=== PATIENT | male | born 1970 | race Asian ===

== ENCOUNTER 2022-10-06 08:37 | Outpatient (REF) | payer BC, SELFPAY ==
[2022-10-06 09:55] LABS: Estimated Average Glucose 114 mg/dL; Hemoglobin A1c % 5.6 %
[2022-10-06 10:48] LABS: Alanine Aminotransferase 20 U/L (0-40); Albumin Level 4.4 g/dL (3.5-5.0); Alkaline Phosphatase 65 U/L (39-117); Anion Gap 11 (12-20); Aspartate Amino Transferase 15 U/L (5-37); Bilirubin Total 1.1 mg/dL (0.0-1.0); Blood Urea Nitrogen 13 mg/dL (9-16); Calcium 9.3 mg/dL (8.4-10.2); Carbon Dioxide 24 mmol/L (22-29); Chloride 106 mmol/L (96-108); Estimated Glomerular Filt Rate > 60; Glucose Random 106 mg/dL (60-115); Potassium 3.8 mmol/L (3.3-5.1); Sodium 137 mmol/L (135-145); Total Protein 7.4 g/dL (6.5-8.0)
== END 2022-10-06 08:38 | disposition home or self-care (01) ==
LOC: HO.LAB 08:37
PROVIDERS: PCP Internal Medicine; Visit Provider Internal Medicine
DX: R73.02 Impaired glucose tolerance (oral) (principal)
CPT/HCPCS: 36415; 80053; 83036

== ENCOUNTER 2022-10-13 10:42 | Outpatient (AMB) | payer BC, SELFPAY ==
--- NOTE | 2022-10-13 10:43 | A.OFFPC_ITS ---
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 Accompanied by: Self / Same As Patient Allergies NSAIDS (Non-Steroidal Anti-Inflamma Allergy (Intermediate, Verified 10/13/22 10:43) congested, Tobacco use date assessed: 04/14/22 Dental Screening Dental Screen Date: 10/13/22 Did you have a dental visit in the last 12 months?: Yes Did you have a dental problem in the last 6 months where you did not have access to dental care?: No Was dental information given to patient?: Patient has dentist HPI Impaired glucose tolerance HPI Details 51-year-old overweight male with hypertension impaired glucose tolerance hypercholesterolemia last seen in March 2022. Repeat blood test was requested. [facility] Medical History Hypertension Overweight (BMI 25.0-29.9) Vitamin D deficiency Surgical History History of cholecystectomy Family History Father Hypertension Stroke Acute CVA (cerebrovascular accident) Mother Hypertension Acute CVA (cerebrovascular accident) Paternal Grandfather Acute CVA (cerebrovascular accident) Maternal Aunt Nasopharynx cancer Son In good health Daughter In good health Maternal Aunt Myocardial infarct Social History Housing: House Alcohol intake: current Patient Tobacco Use Status: Former Tobacco user Tobacco use type: Cigarette Years Smoked: stopped 2018 vape 03/2021, e-Cigarette/Vaping Use: Currently Using Second Hand Smoke Exposure: Yes Current occupational status: employed Cognitive needs: No Hearing needs: No Vision needs: Yes Questionnaire Thrive Questionnaire Date Thrive assessed: 04/14/22 CROW-7 AMB Questionnaire CROW-7 Date CROW - 7 assessed: 04/14/22 Source: Developed by Drs. Kehinde Arnold, Nayeli Mancia, Krzysztof Malik and colleagues, with an educational artie from [employer]. Physical exam (Primary Care) Vital Signs: Last Vital Signs Pulse 69 10/13/22 10:44 BP 122/70 10/13/22 10:44 Pulse Ox 99 10/13/22 10:44 BMI result Body Mass Index 26.6 Tobacco/Smoking Status: Tobacco use Status Tobacco use date assessed 04/14/22 10/13/22 10:47 Patient Tobacco Use Status Former Tobacco user 10/13/22 10:47 Tobacco use type Cigarette 10/13/22 10:47 e-Cigarette/Vaping Use Currently Using 10/13/22 10:47 Thrive Assessment: Date of Thrive Assessment Date Thrive assessed 04/14/22 10/13/22 10:47 Const General: alert; No acute distress Eyes Conjunctivae: conjunctivae normal Resp Auscultation: clear to auscultation bilaterally Cardio Rate: regular rate Rhythm: regular rhythm GI Inspection: Yes normal to inspection Extrem General: Yes normal to inspection and No edema Assessment and Plan Assessment & Plan (1) Hypercholesterolemia: Code(s): E78.00 - Pure hypercholesterolemia, unspecified Plan: Avoid fried foods, chicken skin, eggs, butter margarine, pastries and meat. Be it pork or beef they have a lot of cholesterol LDL goal of less than 130 and triglyceride of less than 150 (2) Impaired glucose tolerance: Code(s): R73.02 - Impaired glucose tolerance (oral) Plan: Decrease the amount of carbohydrate intake, pasta, bread, rice and potatoes are all sugar and that is aside from all the sweet stuff, remember that fruits are good but they are Sweet also. (3) Overweight (BMI 25.0-29.9): Code(s): E66.3 - Overweight Plan: Diet and exercise (4) Hypertension: Code(s): I10 - Essential (primary) hypertension Qualifiers: Hypertension type: essential hypertension Qualified Code(s): I10 - Essential (primary) hypertension Plan: Continue with blood pressure medication. Decrease salt intake and exercise patient is on amlodipine 10 mg once a day hydrochlorothiazide 12.5 mg once a day Coding Level of Care Code Est Pt Level 4 (03773) Diagnoses Hypercholesterolemia E78.00 Impaired glucose tolerance R73.02 Overweight (BMI 25.0-29.9) E66.3 Hypertension I10 Hypertension type: essential hypertension
[2022-10-13 10:44] VITALS: BP 122/70; PULSE 69; O2SAT 99; BMI 26.6
== END 2022-10-13 11:11 | disposition home or self-care (01) ==
PROVIDERS: PCP Internal Medicine; Visit Provider Internal Medicine
DX: E78.00 Pure hypercholesterolemia, unspecified (principal); R73.02 Impaired glucose tolerance (oral); E66.3 Overweight; I10 Essential (primary) hypertension
CPT/HCPCS: 99214

== ENCOUNTER 2023-04-20 10:49 | Outpatient (AMB) | payer BC, SELFPAY ==
[2023-04-20 10:54] VITALS: BP 136/82; PULSE 77; O2SAT 99; BMI 27.8
--- NOTE | 2023-04-20 10:54 | A.OFFPC_ITS ---
Vital Signs 04/20/23 10:54 Height 5 ft 5 in Weight 167 lb 0.8 oz BMI 27.8 BP 136/82 Blood Pressure Location Lt brachial Position Sitting Pulse 77 Pulse Source Pulse Oximeter Pulse Oximetry (%) 99 Oxygen Delivery Method Room Air Intake Visit Reasons: Annual Exam Intake Note: Patient is here today for a physical. 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 Allergies NSAIDS (Non-Steroidal Anti-Inflamma Allergy (Intermediate, Verified 04/20/23 10:55) congested, Medication List - Last Reconciled 04/20/23 by Pati Eli MD amlodipine 10 mg PO DAILY 90 days ascorbate calcium (vitamin C) 500 mg PO DAILY blood pressure monitor (Blood Pressure Kit) As directed cholecalciferol (vitamin D3) 25 mcg PO DAILY vitamin E (dl, acetate) 400 units PO DAILY Tobacco use date assessed: 04/20/23 Dental Screening Dental Screen Date: 04/20/23 Did you have a dental visit in the last 12 months?: Yes Did you have a dental problem in the last 6 months where you did not have access to dental care?: No Was dental information given to patient?: Patient has dentist HPI Annual Exam HPI Details 52-year-old overweight male with hyperch olesterolemia impaired glucose tolerance and hypertension last seen in September 2022. Patient is here for physical exam. Lab work done 04/19/2023 reveals normal blood count platelet count white blood cells folic acid vitamin B12 noted elevated blood sugar to 117 sodium potassium within normal limits kidney function normal calcium liver function all normal cholesterol within normal limits prostate number is normal thyroid is normal hemoglobin A1c 6.1. [facility] Medical History Hypertension Overweight (BMI 25.0-29.9) Vitamin D deficiency Surgical History History of cholecystectomy Family History Father Hypertension Stroke Acute CVA (cerebrovascular accident) Mother Hypertension Acute CVA (cerebrovascular accident) Paternal Grandfather Acute CVA (cerebrovascular accident) Maternal Aunt Nasopharynx cancer Son In good health Daughter In good health Maternal Aunt Myocardial infarct Social History (Updated 04/20/23 @ 11:38 by Pati Eli MD) Housing: House Alcohol intake: current Comment: 4 x a month 3-4 shots Patient Tobacco Use Status: Former Tobacco user Tobacco use type: Cigarette Years Smoked: stopped 2018 vape 03/2021, stopped 2022 e-Cigarette/Vaping Use: Currently Using Second Hand Smoke Exposure: Yes Current occupational status: employed Cognitive needs: No Hearing needs: No Vision needs: Yes Questionnaire PHQ-9 Over the last 2 weeks, how often have you been bothered by any of the following problems? 1. Little interest or pleasure in doing things: not at all 2. Feeling down, depressed, or hopeless: not at all 3. Trouble falling or staying asleep, or sleeping too much: not at all 4. Feeling tired or having little energy: not at all 5. Poor appetite or overeating: not at all 6. Feeling bad about yourself - or that you are a failure or have let yourself or your family down: not at all 7. Trouble concentrating on things, such as reading the newspaper or watching television: not at all 8. Moving or speaking so slowly that other people could have noticed. Or the opposite - being so fidgety or restless that you have been moving around a lot more than usual: not at all 9. Thoughts that you would be better off or of hurting yourself in some way: not at all Total score: 0 Depression Screening Interpretation: Negative Depression Screening Done: Yes Source: Developed by Drs. Kehinde Anrold, Nayeli Mancia, Krzysztof Malik and colleagues, with an educational artie from [employer]. Thrive Questionnaire Date Thrive assessed: 04/20/23 I am a: Patient What is your living situation today?: I have a steady place to live Within the past 12 months, did the food you bought not last and you didn't have the money to get more?: Never true Within the past 12 months, did you worry whether your food would run out before you got money to buy more?: Never true Do you have trouble paying for medicines?: No Do you have trouble getting transportation to medical appointments?: No Do you have trouble paying your heating and electricity bill?: No Do you have trouble taking care of your child, family member or friend?: No Do you have trouble with day-to-day activities such as bathing, preparing meals, shopping, managing finances, etc.?: No Are you currently unemployed and looking for a job?: No Are you interested in more education?: No Please select the resources that you would like help with: None THRIVE Score: 0 AUDIT C Alcohol Use Questionnaire (AUDIT-C) 1. How often do you have a drink containing alcohol?: 2-3 times a week 2. How many drinks containing alcohol do you have on a typical day when you are drinking?: 1 or 2 3. How often do you have six or more drinks on one occasion?: Never Total Score: 3 CROW-7 AMB Questionnaire CROW-7 Date CROW - 7 assessed: 04/20/23 Feeling nervous, anxious, or on edge: 0 = Not at all Not being able to stop or control worryin = Not at all Worrying too much about different things: 0 = Not at all Trouble relaxin = Not at all Being so restless that it is hard to sit still: 0 = Not at all Becoming easily annoyed or irritable: 0 = Not at all Feeling afraid as if something awful might happen: 0 = Not at all Total CROW-7 score (0-4 normal; 5-9 mild; 10-14 moderate; 15-21 severe): 0 Source: Developed by Drs. Kehinde Arnold, Nayeli Mancia, Krzysztof Malik and colleagues, with an educational artie from [employer]. Review of Systems Const Denies poor appetite and Denies weakness Eyes Denies no additional complaints ENT Reports Normal hearing present, Denies dizziness, Denies nasal congestion, Denies tinnitus and Denies sore throat Card Denies chest pain, Denies syncope, Denies rapid heart rate and Denies dyspnea Resp Denies cough and Denies dyspnea GI Denies change in stool character, Reports constipation, Denies diarrhea, Denies nausea and Denies vomiting Denies dysuria and Denies urinary frequency Neuro Reports Normal hearing present, Denies confusion, Denies dizziness, Denies syncope and Denies weakness Psych Denies confusion Physical exam (Primary Care) Vital Signs: Last Vital Signs Pulse 77 04/20/23 10:54 BP 136/82 04/20/23 10:54 Pulse Ox 99 04/20/23 10:54 Oxygen Delivery Method Room Air 04/20/23 10:54 BMI result Body Mass Index 27.8 Tobacco/Smoking Status: Tobacco use Status Tobacco use date assessed 04/20/23 04/20/23 10:55 Patient Tobacco Use Status Former Tobacco user 04/20/23 10:55 Tobacco use type Cigarette 04/20/23 10:55 e-Cigarette/Vaping Use Currently Using 04/20/23 10:55 PHQ-9: PHQ-9 Score PHQ-9: Total score 0 04/20/23 11:02 Depression Screening Interpretation: Negative Thrive Assessment: Date of Thrive Assessment Date Thrive assessed 04/20/23 04/20/23 10:55 Const General: No confusion Orientation/consciousness: No confusion HENMT Head: Yes normocephalic Ears: external ears normal and TM's normal bilaterally Face and sinus: Yes normal facial exam Mouth: moist mucous membranes Throat: Yes tonsils normal Eyes Conjunctivae: conjunctivae normal Pupils: Equal, round and reactive pupils present and Pupil accommodation reflex normal Direct Ophthalmoscopy: normal light reflex Neck Neck: No lymphadenopathy Thyroid: Thyroid normal Chest Chest palpation & inspection: normal inspection of the chest Resp Effort & Inspection: normal respiratory effort and no audible wheezes Auscultation: clear to auscultation bilaterally, no crackles, no wheezes and lung sounds not diminished Cardio Rate: regular rate Rhythm: regular rhythm Peripheral pulses: radial pulses present and dorsalis pedis present GI Palpation (GI): no masses Auscultation: normal bowel sounds and normoactive bowel sounds Rectal Exam - Male: Yes deferred Skin General skin exam: no rashes or lesions noted Rashes: no rashes Neuro General: No confusion Cranial nerves: Yes Equal, round and reactive pupils present and Yes Normal hearing present Cognition (Neuro): normal cognition Gait exam (Neuro): Normal gait present Motor exam (neuro): 5/5 motor strength present throughout Deep tendon reflexes (DTR's): Right brachioradialis reflex intensity grade: 2+, Left brachioradialis reflex intensity grade: 2+, Right patellar reflex intensity grade: 2+ and Left patellar reflex intensity grade: 2+ Extrem General: No edema Assessment and Plan Assessment & Plan (1) Annual physical exam: Code(s): Z00.00 - Encounter for general adult medical examination without abnormal findings (2) Impaired glucose tolerance: Code(s): R73.02 - Impaired glucose tolerance (oral) Plan: Decrease the amount of carbohydrate intake, pasta, bread, rice and potatoes are all sugar and that is aside from all the sweet stuff, remember that fruits are good but they are Sweet also. Hemoglobin A1c March 2023 6.1 advised psyllium like citrucel /metamucil (3) Overweight (BMI 25.0-29.9): Code(s): E66.3 - Overweight Plan: Diet and exercise (4) Hypertension: Code(s): I10 - Essential (primary) hypertension Qualifiers: Hypertension type: essential hypertension Qualified Code(s): I10 - Ess ential (primary) hypertension Plan: Continue with blood pressure medication. Decrease salt intake and exercise on hydrochlorothiazide and amlodipine BP control (5) Hypercholesterolemia: Code(s): E78.00 - Pure hypercholesterolemia, unspecified Plan: Avoid fried foods, chicken skin, eggs, butter margarine, pastries and meat. Be it pork or beef they have a lot of cholesterol LDL goal of less than 130 and triglyceride of less than 150 diet controlled Medications: Refilled amlodipine 10 mg PO DAILY 90 days 90 tabs 3RF I10 - Essential (primary) hypertension Coding Level of Care Code Est Pt Prev Care 40-64y(82101) Diagnoses Annual physical exam Z00.00 Impaired glucose tolerance R73.02 Overweight (BMI 25.0-29.9) E66.3 Essential hypertension I10 Hypertension type: essential hypertension Hypercholesterolemia E78.00
== END 2023-04-20 11:53 | disposition home or self-care (01) ==
PROVIDERS: Visit Provider Internal Medicine
DX: Z00.00 Encounter for general adult medical examination without abnormal findings (principal); R73.02 Impaired glucose tolerance (oral); E66.3 Overweight; I10 Essential (primary) hypertension; E78.00 Pure hypercholesterolemia, unspecified
CPT/HCPCS: 99396

== ENCOUNTER → 2024-05-02 12:08 | Outpatient (AMB) | payer BC, SELFPAY | END | disposition home or self-care (01) | PROVIDERS: PCP Internal Medicine; Visit Provider Internal Medicine ==

== ENCOUNTER → 2024-05-02 12:08 | Outpatient (BNVA) | payer BC, SELFPAY | PROVIDERS: PCP Internal Medicine; Visit Provider Internal Medicine ==

== ENCOUNTER 2024-11-07 11:32 | Outpatient (AMB) | payer OTHER, SELFPAY ==
--- NOTE | 2024-11-07 11:35 | A.OFFPC_ITS ---
Vital Signs 11/07/24 11:36 Height 5 ft 5 in Weight 172 lb 2 oz BMI 28.6 BP 110/70 Blood Pressure Location Lt brachial Position Sitting Pulse 86 Pulse Source Pulse Oximeter Temp 97.1 F Temp Source Temporal Artery Scan Pulse Oximetry (%) 98 Oxygen Delivery Method Room Air Intake Visit Reasons: IGT Intake Note: Patient is here to follow up on IGT. 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 Accompanied by: Self / Same As Patient Allergies NSAIDS (Non-Steroidal Anti-Inflamma Allergy (Intermediate, Verified 11/07/24 11:35) congested, Tobacco use date assessed: 11/07/24 Dental Screening Dental Screen Date: 05/02/24 [facility] Medical History Hypertension Overweight (BMI 25.0-29.9) Vitamin D deficiency Surgical History History of cholecystectomy Family History Father Hypertension Stroke Acute CVA (cerebrovascular accident) Mother Hypertension Acute CVA (cerebrovascular accident) Paternal Grandfather Acute CVA (cerebrovascular accident) Maternal Aunt Nasopharynx cancer Son In good health Daughter In good health Maternal Aunt Myocardial infarct Social History (Updated 11/07/24 @ 11:42 by JOVANNI Calderon) Housing: House Alcohol intake: current Comment: 1-2 x a month 2 shots Patient Tobacco Use Status: Former Tobacco user Tobacco use type: Cigarette Years Smoked: stopped 2018 vape 03/2021, stopped 2022 e-Cigarette/Vaping Use: Former Use Second Hand Smoke Exposure: Yes service: No Current occupational status: employed Cognitive needs: No Hearing needs: No Vision needs: Yes Questionnaire Thrive Questionnaire Date Thrive assessed: 04/30/24 I am a: Patient What is your living situation today?: I have a steady place to live Within the past 12 months, did the food you bought not last and you didn't have the money to get more?: Never true Within the past 12 months, did you worry whether your food would run out before you got money to buy more?: Never true Do you have trouble paying for medicines?: No Do you have trouble getting transportation to medical appointments?: No Do you have trouble paying your heating and electricity bill?: No Do you have trouble taking care of your child, family member or friend?: No Do you have trouble with day-to-day activities such as bathing, preparing meals, shopping, managing finances, etc.?: No Are you currently unemployed and looking for a job?: No Are you interested in more education?: Yes Please select the resources that you would like help with: Education Currently or been in a relationship where the following occur: No concerns reported THRIVE Score: 0 CROW-7 AMB Questionnaire CROW-7 Date CROW - 7 assessed: 05/02/24 Source: Developed by Drs. Kehinde Arnold, Nayeli Mancia, Krzysztof Malik and colleagues, with an educational artie from [employer]. Physical exam (Primary Care) Vital Signs: Last Vital Signs Temp 97.1 F 11/07/24 11:36 Pulse 86 11/07/24 11:36 BP 110/70 11/07/24 11:36 Pulse Ox 98 11/07/24 11:36 Oxygen Delivery Method Room Air 11/07/24 11:36 BMI result Body Mass Index 28.6 Tobacco/Smoking Status: Tobacco use Status Tobacco use date assessed 11/07/24 11/07/24 11:43 Patient Tobacco Use Status Former Tobacco user 11/07/24 11:43 Tobacco use type Cigarette 11/07/24 11:43 e-Cigarette/Vaping Use Former Use 11/07/24 11:43 Thrive Assessment: Date of Thrive Assessment Date Thrive assessed 04/30/24 11/07/24 11:43 Currently or been in a relationship where the following occur: No concerns reported Const General: alert; No acute distress Eyes Conjunctivae: conjunctivae normal Resp Auscultation: clear to auscultation bilaterally Cardio Rate: regular rate Rhythm: regular rhythm GI Inspection: Yes normal to inspection Extrem General: Yes normal to inspection and No edema Results AMB Hemoglobin A1c AMB Hemoglobin A1c 6.1 % Last Edit by Mery Mcmillan CMA on 11/07/24 12 :41 Results Reviewed Results Reviewed: Laboratory Last Values Hgb A1c (Clinic) 6.1 % (4.0-6.0) H 11/07/24 12:24 Coding Level of Care Code Est Pt Level 4 (54772) Diagnoses Essential hypertension I10 Hypertension type: essential hypertension Hypercholesterolemia E78.00 Impaired glucose tolerance R73.02 Overweight (BMI 25.0-29.9) E66.3 Thumb tendonitis M77.8 Assessment & Plan Assessment & Plan (1) Hypertension: Code(s): I10 - Essential (primary) hypertension Category: Medical Qualifiers: Hypertension type: essential hypertension Qualified Code(s): I10 - Essential (primary) hypertension Plan: continue with BP med , low salt diet patient on amlodipine 10 mg once a day. Lower extremity swelling is mild (2) Hypercholesterolemia: Code(s): E78.00 - Pure hypercholesterolemia, unspecified Category: Medical Plan: awaiting blood work . low cholesterol diet. Avoid fried foods, chicken skin, eggs, butter margarine, pastries and meat. Be it pork or beef they have a lot of cholesterol LDL goal of less than 130 and triglyceride of less than 150 (3) Impaired glucose tolerance: Code(s): R73.02 - Impaired glucose tolerance (oral) Category: Medical Plan: Decrease the amount of carbohydrate intake, pasta, bread, rice and potatoes are all sugar and that is aside from all the sweet stuff, remember that fruits are good but they are Sweet also. Hemoglobin A1c today is 6.1. Normal hemoglobin A1c is below 5.7 (4) Overweight (BMI 25.0-29.9): Code(s): E66.3 - Overweight Category: Medical Plan: diet and exercise (5) Thumb tendonitis: Code(s): M77.8 - Other enthesopathies, not elsewhere classified Category: Medical Plan: discussed about antiinflammatory voltaren gel. If persist to call and referral to orthopedics Plan History of Present Illness The patient is a 53-year-old male presenting for a routine physical examination and management of chronic conditions. The patient has a history of hypertension, which is currently managed with medication. He also has impaired glucose tolerance, with a previous hemoglobin A1c of 6.1, indicating prediabetes. The patient's last blood work in March 2023 showed a blood glucose level of 117 mg/dL. The patient also has hypercholesterolemia, with an LDL cholesterol level of 117 mg/dL noted in the last blood work. Liver function tests were normal, and prostate and thyroid levels were within normal limits. Preventative care measures include a negative Cologuard test in 2021 for colon cancer screening. Health Maintenance - Colon cancer screening with Cologuard test, negative in 2021 - Discussion about shingles vaccination, completed second dose last month Social History Review of Systems Physical Exam General: Cooperative, healthy appearing, comfortable, no acute distress and well developed Orientation: Patient oriented x3 Limitations: No limitations Head: Normal to inspection Ears: Hearing grossly normal bilaterally Nose: Normal external nose present Face and sinus: Normal facial exam Eyes: Appearance normal, both eyes and all related structures Neck: Normal visual inspection and Yes full ROM Respiratory: Normal respiratory effort and able to speak in complete sentences. Clear to auscultation bilaterally Cardiovascular: Regular rate and rhythm. Normal S1 and S2 GI: Normal to inspection. Soft to palpation and nontender Skin: No rashes or lesions noted Neuro: Patient oriented x3 Extremities: Normal to inspection Results - Labs: Blood glucose level of 117 mg/dL, LDL cholesterol level of 117 mg/dL, hemoglobin A1c of 6.1, normal liver function tests, normal prostate and thyroid levels Plan The plan includes continued management of hypertension with current medications and monitoring of blood pressure levels. For impaired glucose tolerance, the patient is advised to monitor blood glucose levels and maintain a healthy diet to prevent progression to diabetes. The patient is encouraged to continue with regular physical activity and weight management strategies. For hypercholesterolemia, dietary modifications and regular monitoring of lipid levels are recommended. Preventative care measures include maintaining up-to-date vaccinations, such as the shingles vaccine, and regular screenings like colon cancer screening. Patient was informed and verbally consented to the use of an ambient scribe for clinic note documentation during this visit. Discussion Notes During the visit, we discussed the importance of managing hypertension and impaired glucose tolerance through lifestyle modifications and medication adherence. I emphasized the need for regular monitoring of blood pressure and glucose levels to prevent complications. We also reviewed the patient's lipid profile and discussed dietary changes to manage hypercholesterolemia. Preventative care was addressed, including the completion of the shingles vaccine series and the importance of regular colon cancer screenings. Patient Instructions - Continue taking prescribed medications for hypertension. - Monitor blood glucose levels regularly and maintain a balanced diet. - Engage in regular physical activity and manage weight effectively. - Follow dietary recommendations to manage cholesterol levels. - Ensure vaccinations are up-to-date, including shingles vaccine. - Schedule regular screenings, such as colon cancer screening. Orders: Orders AMB Hemoglobin A1c Today Z13.9 - Encounter for screening, unspecified
[2024-11-07 11:36] VITALS: BP 110/70; PULSE 86; TEMP 36.2; O2SAT 98; BMI 28.6
== END 2024-11-07 12:43 | disposition home or self-care (01) ==
LOC: HO.HMCH 11:33
PROVIDERS: PCP Internal Medicine; Visit Provider Internal Medicine
DX: I10 Essential (primary) hypertension (principal); E78.00 Pure hypercholesterolemia, unspecified; R73.02 Impaired glucose tolerance (oral); E66.3 Overweight; M77.8 Other enthesopathies, not elsewhere classified; Z13.9 Encounter for screening, unspecified

== ENCOUNTER → 2024-11-07 11:32 | Outpatient (BNVA) | payer OTHER, SELFPAY | PROVIDERS: PCP Internal Medicine; Visit Provider Internal Medicine | DX: I10 Essential (primary) hypertension (principal); E78.00 Pure hypercholesterolemia, unspecified; R73.02 Impaired glucose tolerance (oral); E66.3 Overweight; M77.8 Other enthesopathies, not elsewhere classified; Z68.28 Body mass index [BMI] 28.0-28.9, adult | CPT/HCPCS: 83036 ==